=== PATIENT | female | born 1955 | race Caucasian/White ===

== ENCOUNTER → 2016-06-28 | Day surgery (SDC) | payer BC ==
[~2016-06-28] MED LIST: KETOROLAC TROMETHAMINE 30 MG/ML (IVP) VIAL IV PUSH ONE; LACTATED RINGER'S 1000 ML INJ 1,000 ML ONE; LIDOCAINE HCL 1% 50 ML VIAL ONE; MEPERIDINE HCL 25 MG/ML VIAL ONE; MIDAZOLAM HCL 2 MG/2 ML VIAL ONE; MIDAZOLAM HCL 5 MG/ML VIAL (1 ML) ONE; PROPOFOL 200 MG/20 ML AMP IV ONE; TRIAMCINOLONE ACETONIDE 40 MG/ML VIAL ONE
--- NOTE | 2016-06-28 14:02 | TN ---
cc: MABEL HOYOS M.D., ALBERT W. M.D. DATE OF SURGERY: 06/28/2016 PREOPERATIVE DIAGNOSIS Left shoulder adhesive capsulitis, bursitis and tendinitis. POSTOPERATIVE DIAGNOSIS Left shoulder adhesive capsulitis, bursitis and tendinitis. PROCEDURE Left shoulder manipulation, intra-articular steroid injection, fluoroscopic guidance of needle under anesthesia. SURGEON Maria Alejandra Narvaez MD [employer] Staff. SPECIMEN None. ESTIMATED BLOOD LOSS None. COMPLICATIONS None. ANESTHESIA TIVA. DRAINS None. CONDITION Stable. PLAN OF ACTIVITY As per orders. DETAILS OF PROCEDURE The patient was brought into the operating room and had satisfactory TIVA anesthesia by Dr. Sanchez of the department of anesthesia. The left shoulder was prepped and draped in the usual sterile manner. The shoulder was manipulated under anesthesia first with flexion then abduction and then external rotation. An 18-gauge spinal needle under fluoroscopic guidance with 1 cc of Kenalog and 4 cc of 1% lidocaine was injected into the left shoulder joint. A Band-Aid was placed over the injection site. The patient tolerated the procedure well and arrived in the recovery room in stable and satisfactory condition. Left shoulder two views AP and lateral show status post left shoulder manipulation, no obvious fracture, dislocation or subluxation. MD FARA Carreon/ANGIE /1:49 PM /1:56 PM
== END | disposition home or self-care (01) ==
LOC: ESDC 12:01
PROVIDERS: ATTEND Orthopaedic Surgery Orthopaedic Surgery of the Spine
DX: M75.02 Adhesive capsulitis of left shoulder (principal); M75.52 Bursitis of left shoulder
CPT/HCPCS: 01620; 23700; 73030; 76000; J1885; J2175; J2250; J3010; J3301; J7120